=== PATIENT | female | born 1970 | race Caucasian/White ===

== ENCOUNTER 2018-08-12 09:03 | Day surgery (SDC) | payer OTHER ==
[~2018-08-12] VITALS: Ht 160 cm; Wt 76.2 kg
[~2018-08-12 09:03] MED LIST: FISH OIL 1,0001 EAC1 PO; ZOLP10 PO
== END 2018-08-12 10:17 | disposition home or self-care (01) ==
LOC: ORSCSDS 09:03
PROVIDERS: Internal Medicine Gastroenterology
PROC: 0DJD8ZZ Inspection of Lower Intestinal Tract, Via Natural or Artificial Opening Endoscopic (ICD-10-PCS; principal; 2018-08-12 10:15)
DX: K62.5 Hemorrhage of anus and rectum (principal); K64.8 Other hemorrhoids; Z87.891 Personal history of nicotine dependence
CPT/HCPCS: J2704; J7120